=== PATIENT | female | born 1985 | race Caucasian/White ===

== ENCOUNTER 2019-10-25 08:09 | Outpatient (RCR) | payer OTHER | END 2020-01-23 | disposition home or self-care (01) | LOC: CARD 08:09 | PROVIDERS: ATTEND Internal Medicine Interventional Cardiology | DX: I49.3 Ventricular premature depolarization (principal); I47.2 Ventricular tachycardia; I42.9 Cardiomyopathy, unspecified; R55 Syncope and collapse | CPT/HCPCS: 93270 ==